=== PATIENT | male | born 1940 | race Caucasian/White ===

== ENCOUNTER 2016-05-31 18:41 | Observation (INO) | payer OTHER ==
--- NOTE | ~2016-05-31 | DS ---
Discharge Summary [facility] [address] [place]. [address] NAME: LOAN WISE : 44 STATUS : DIS Sam PAT#: [id number] AGE: 76 ADM/REG DATE : 05/31/16 MR#: [id number] REPORT SERV DATE: 06/03/16 DICTATED BY: STEF APPIAH DATE: 06/02/16 REPORT STATUS : Draft TRANSCRIBED BY: MODL DATE: 06/02/16 ADMISSION DATE: 05/31/2016 DISCHARGE DATE: 06/02/2016 PRINCIPAL DIAGNOSIS: Generalized weakness. SECONDARY DIAGNOSES: 1. History of stroke. 2. Iatrogenic hyperthyroidism in the setting of hypothyroidism. 3. History of Lhermitte's signs. HISTORY OF PRESENT ILLNESS: Please see Dr. Gayle's dictation of 05/31/2016. HOSPITAL COURSE: Admitted with episodic bilateral weakness, fatigue with sensation of electrical energy radiating from across his thorax and back down to his arms. The patient actually had a CVA workup ordered at admission; however, this syndrome is not compatible with a stroke and not unexpectedly his MRI and MRA were negative. The patient had a cardiac workup at the primary care provider's office, which also had been negative. The patient was mildly hyperthyroid, his Synthroid dose was reduced, but his symptoms actually were more typical of compression myelopathy. However, he had no hyperreflexia or any evident weakness or numbness at all, the patient actually was doing much better. On 06/02/2016, it was felt he was satisfactory to go home as there was no surgical intervention that would be planned for this with improving symptoms even if he did in fact have a compression myelopathy with motor weakness. He was advised, however, to follow up closely with Dr. Sha Walter over subsequent weeks if symptoms were to persist or to worsen to reconsider imaging of the cervical spine. RSM/SHASHI Stef Appiah M.D. / [id number] CC: MD Sha Marcos M.D.
--- NOTE | ~2016-05-31 | HP ---
History And Physical [facility] [address] [place]. [address] NAME: LOAN WISE : 44 STATUS : ADM Sam PAT#: [id number] AGE: 76 ADM/REG DATE : 05/31/16 MR#: [id number] REPORT SERV DATE: 06/01/16 DICTATED BY: SHAHNAZ GAYLE DATE: 05/31/16 REPORT STATUS : Draft TRANSCRIBED BY: MODL DATE: 05/31/16 DATE OF ADMISSION: 05/31/2016 CHIEF COMPLAINT: Abnormal gait with sustained weakness and abnormal feelings throughout the day. 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 Symptoms have been progressively worse but would essentially resolve, be intermittent, symptoms of heat like feeling, questionable paresthesia, would occur across his back. The patient was also noted to have abnormal gait that has also not subsided since this morning. Symptoms are mild to moderate on feeling. The patient did have dull kind of sensation across back, mild nausea, generalized weakness, malaise, deep muscle type weakness in proximal areas but no fever, chills, shortness of breath, wheezing, redness, or diaphoresis. No chest pain or palpitations. There are no worsening or relieving symptoms. Symptoms although currently are slightly better. They have reoccurred while he has been in the emergency room. The patient additionally has history of constipation for which he takes bowel regimen, has been worked up with his PCP for this. REVIEW OF SYSTEMS: Additionally 10-point review of systems negative except for that noted in the HPI. PAST MEDICAL HISTORY: Of hypertension, CVA x2/TIA x2 with subsequent vertebral artery stent placement follows yearly at [facility], hyperlipidemia, reflux, hyperthyroid status post radiation, radiated iodine with subsequent hypothyroidism on replacement. SURGICAL HISTORY: He has had right knee meniscus and vertebral stent for blockage, back benign skin lesion removal. FAMILY HISTORY: Of diabetes and heart disease. SOCIAL HISTORY: with spouse, smoked from 17 to 33 years old, has not picked up any cigarettes since he was 33 years old. Never has had alcohol. No illicits, retired from [employer] after many years. EKG: Normal sinus rhythm, rate of 73, QTc 403. No dynamic EKG changes. ALLERGIES: NO KNOWN DRUG ALLERGIES. HOME MEDICATIONS: Aspirin, atorvastatin 80 mg, docusate, levothyroxine, losartan, and Prilosec. History And Physical [address] [address] NAME: LOAN WISE : 44 STATUS : ADM Sam PAT#: [id number] AGE: 76 ADM/REG DATE : 05/31/16 MR#: [id number] REPORT SERV DATE: 06/01/16 DICTATED BY: SHAHNAZ GAYLE DATE: 05/31/16 REPORT STATUS : Draft TRANSCRIBED BY: SHASHI DATE: 05/31/16 PHYSICAL EXAMINATION: VITAL SIGNS: The patient's blood pressure 165/62, temperature 98.2, pulse 76, respirations 18, O2 sats 97% to 100% on room air. GENERAL: Well developed, well nourished, no acute distress. Calm, pleasant, joking manner. EYES: No scleral icterus. EOMI. ENT: Unable to appreciate nystagmus on my exam, although this was appreciated by nurse practitioner, in the ER but this is not reproducible currently. ENT: Moist mucous membranes. Tongue midline. Nares patent. Does have mild drainage in posterior pharynx. CV: Regular rate. No rubs. Cap refill less than 2 seconds. No pedal edema. GI: Soft, nontender, nondistended. Bowel sounds positive. Central obesity. SKIN: Does have mild rash on skin areas on left side. MUSCULOSKELETAL: Moves all extremities x4. : Deferred. LYMPH: No cervical or supraclavicular lymphadenopathy. HEME: No bleeding or bruising. NEURO: Alert and oriented x3. Symmetrical smile. Tongue midline. Hearing grossly intact, while hearing light noise. Symmetrical eyebrow, wrinkle and symmetrical puffy cheeks. Symmetrical shoulder rise. [id number] grossly are intact bilateral and fine touch fingers intact. Reflexes; brachioradialis hand and knees, Achilles symmetrical and equal bilaterally. Sensation is grossly intact upper and lower extremities. Symmetrical strength upper and lower. Gait that was tested with nurse does have noticeable drift. No beating nystagmus at this time. PSYCH: Appropriate mood and affect, joking manner. DATA: CT head; no acute CVA or other intracranial pathology, old infarcts bilateral cerebellar hemispheres, largest on the left. LABS: TSH low at 0.171, ionized calcium within normal limits 4.56. Urinalysis within normal limits. BMP; grossly within normal limits with a glucose of 102, troponin negative, and CBC grossly within normal limits. INR 1.0. ASSESSMENT AND PLAN: 1. Questionable transient ischemic attack with abnormal gait and old infarct history. Also, additionally has vertebral stent and questionable paresthesias. 2. Abnormal TSH. 3. Hypertension. 4. Weakness. PLAN: 1. For TIA; TIA order set initiated, not a tPA candidate due to almost minimal symptoms except for gait. The patient does have fairly benign additional clinical exam, normal vocal antonella. We will check MRI MRA as the patient has history of vertebral stenting at [place], does see neurologist at [place] but does have somewhat atypical presentations of paresthesias, weakness, and gait changes. 2. Abnormal TSH. Check TSH and repeat free T4, is on replacement, adjust as necessary. 3. Hypertension on ARB, p.r.n. as needed. History And Physical [address] [address] NAME: LOAN WISE : 44 STATUS : ADM Sam PAT#: [id number] AGE: 76 ADM/REG DATE : 05/31/16 MR#: [id number] REPORT SERV DATE: 06/01/16 DICTATED BY: SHAHNAZ GAYLE DATE: 05/31/16 REPORT STATUS : Draft TRANSCRIBED BY: MODL DATE: 05/31/16 4. Weakness. PT evaluation, check thyroid function, CPK due to atorvastatin and proximal weakness episodes. Additionally, we will check ESR for PMR differential. All questions answered to the patient and family at bedside. The patient did have MRI scheduled on Friday per PCP. The patient knows to cancel this as the patient will be receiving MRI here for TIA complete workup. DDN/MODL Shahnaz Gayle MD / [id number] CC: Sha Christianson Jr, MD Paula H. Obear, NP
[2016-05-31 19:23] LABS: BASOPHILS 0.1 %; BASOPHILS ABSOLUTE 0.01 10/3/uL (0.0-0.16); EOSINOPHILS 1.1 %; EOSINOPHILS ABSOLUTE 0.11 10/3/uL (0.0-0.53); ER CBC TAT 0 Hrs 05 Mins; HEMOGLOBIN 14.2 g/dL (13.6-17.8); IMMATURE GRANULOCYTES 0.1 %; IMMATURE GRANULOCYTES ABSOLUTE 0.01 10/3/uL (0.0-0.11); LYMPHOCYTES 34.7 %; LYMPHOCYTES ABSOLUTE 3.49 10/3/uL (0.67-4.30); MEAN CORPUS HGB CONC 34.4 g/dL (32.0-36.0); MEAN CORPUSCULAR HEMOGLOB 30.5 pg (26.0-34.0); MONOCYTES 8.9 %; NEUTROPHILS 55.1 %; NEUTROPHILS ABSOLUTE 5.54 10/3/uL (2.02-8.40); PLATELET COUNT 171 10/3/uL (150-400); RBC DISTRIBUTION WIDTH 13.6 % (12.0-16.0); WHITE BLOOD CELLS 10.1 10/3/uL (4.5-10.5)
[2016-05-31 19:25] LABS: HEMATOCRIT 41.3 % (40.0-51.0); MANUAL DIFF NO %; MEAN CORPUSCULAR VOLUME 88.6 fL (80-100); RED CELL COUNT 4.66 10/6/uL (4.7-6.1)
[2016-05-31 19:30] LABS: PROTIME (NOT ORD) 13.3 SEC (12.0-14.5)
[2016-05-31 19:37] LABS: BUN (BLOOD UREA NITROGEN) 11 MG/DL (6-23); CALCIUM, SERUM 8.6 MG/DL (8.5-10.4); CHEST PAIN PROFILE TAT 0 Hrs 19 Mins; CHLORIDE, SERUM 105 MMOL/L (96-112); CO2 (CARBON DIOXIDE) 28 MMOL/L (24-34); CREATININE 0.85 MG/DL (0.70-1.30); GFR AFRICAN AMERICAN 99 ML/MIN (>=60); GFR NON AFRICAN AMERICAN 86 ML/MIN (>=60); GLUCOSE, SERUM 102 MG/DL (60-99); POTASSIUM, SERUM 4.6 MMOL/L (3.5-5.3); SODIUM, SERUM 142 MMOL/L (135-148); TROPONIN I <0.02 NG/ML (<0.05)
[2016-05-31 20:41] LABS: ASCORBIC ACID (UR NOT ORDER) NEG (NEG); BILIRUBIN, URINE NEGATIVE (NEG); ER URINALYSIS TAT 0 Hrs 11 Mins; KETONE, URINE NEGATIVE (NEG); LEUKOCYTE ESTERASE(NOT OR NEG (NEG); NITRITE (URINE) NEG (NEG); WBC (NOT ORDERED) (RFLEX) < 1 (0-5)
[2016-05-31] MEDS ORDERED: COZAAR100 MG PO (22:26)
[2016-05-31] MEDS ORDERED: LEVOTHYROXIN100 MCG PO (22:26)
[2016-05-31] MEDS ORDERED: LIPITOR80 MG PO (22:26)
[2016-05-31] MEDS ORDERED: PRILO PO (22:26)
[2016-05-31] MEDS ORDERED: DSS PO (22:27)
[2016-05-31] MEDS ORDERED: ASAEC PO (22:27)
[2016-06-01 05:32] LABS: INTERNATIONAL NORMAL RATI 1.1 UNITS (-); PARTIAL THROMBO TIME 23.3 SEC (22.5-37.2); PROTIME (NOT ORD) 13.7 SEC (12.0-14.5)
[2016-06-01 06:11] LABS: CHOL/HDL RATIO(NOT ORDER) 1.9 (0-5); CHOLESTEROL 113 MG/DL (< 200); CPK 54 U/L (0-200); FREE T4 1.49 NG/DL (0.76-1.46); HDL CHOLESTEROL 58 MG/DL (> 39); LDL CHOLESTEROL 40 MG/DL (< 130); NON-HDL CHOLESTEROL 55 MG/DL (< 160); TRIGLYCERIDE 76 MG/DL (< 150); TROPONIN I <0.02 NG/ML (<0.05); ULTRASENSITIVE TSH 0.201 MCIU/ML (0.358-3.740)
[2016-06-01 06:14] LABS: CK-MB 1.2 NG/ML; FOLATE 24.7 NG/ML (>5.2)
[2016-06-01 23:19] LABS: CPK 49 U/L (0-200); TROPONIN I <0.02 NG/ML (<0.05)
[2016-06-02 04:56] LABS: A/G RATIO 1.1 (0.7-1.9); ALKALINE PHOSPHATASE 89 U/L (45-117); BUN (BLOOD UREA NITROGEN) 14 MG/DL (6-23); CALCIUM, SERUM 8.2 MG/DL (8.5-10.4); CHLORIDE, SERUM 107 MMOL/L (96-112); CO2 (CARBON DIOXIDE) 25 MMOL/L (24-34); CREATININE 0.81 MG/DL (0.70-1.30); GFR AFRICAN AMERICAN 101 ML/MIN (>=60); GFR NON AFRICAN AMERICAN 88 ML/MIN (>=60); GLOBULIN 2.8 G/DL (2.5-4.1); GLUCOSE, SERUM 96 MG/DL (60-99); POTASSIUM, SERUM 3.9 MMOL/L (3.5-5.3); SGOT(AST) 8 U/L (5-40); SGPT(ALT) 14 U/L (5-65); TOTAL BILIRUBIN 0.5 MG/DL (0-1.2); TOTAL PROTEIN 5.8 G/DL (6.0-8.5)
[2016-06-02 05:10] LABS: SODIUM, SERUM 143 MMOL/L (135-148)
[2016-06-02] MEDS ORDERED: MAGOX4 PO (15:15)
== END 2016-06-02 16:15 | disposition home or self-care (01) ==
LOC: ER 18:41 → CDU1 23:02
PROVIDERS: Emergency Medicine; Hospitalist; Internal Medicine; Nurse Practitioner
DX: R53.1 Weakness (principal); I10 Essential (primary) hypertension; E03.9 Hypothyroidism, unspecified; E78.5 Hyperlipidemia, unspecified; K21.9 Gastro-esophageal reflux disease without esophagitis; F17.210 Nicotine dependence, cigarettes, uncomplicated; E66.9 Obesity, unspecified; R94.6 Abnormal results of thyroid function studies; Z68.31 Body mass index [BMI] 31.0-31.9, adult; Z86.73 Personal history of transient ischemic attack (TIA), and cerebral infarction without residual deficits; Z92.3 Personal history of irradiation; Z98.890 Other specified postprocedural states; Z95.5 Presence of coronary angioplasty implant and graft
CPT/HCPCS: 70450; 70544; 70548; 70551-52; 71010; 71020; 80048; 80053; 80061; 81001; 82330; 82550; 82553; 82607; 82746; 83036; 83735; 84439; 84443; 84484; 85025; 85610; 85652; 85730; 93005; 96372; 97161-GP; 99285; A9270-GY; A9577; C8929; G0378; G8978-CJ-GP; G8979-CI-GP; Q9957